=== PATIENT | male | born 1975 | race Caucasian/White ===

== ENCOUNTER 2019-12-24 12:27 | Emergency (ER) | payer BC, SELFPAY ==
--- NOTE | ~2019-12-24 | XR_ITS ---
EXAMINATION: XR abdomen obstructive series EXAM DATE: 12/24/2019 14:06 INDICATION: Abdominal pain. TECHNIQUE: Frontal upright projection of the upper abdomen, frontal projection of the lower abdomen f or interpretation. There is no prior study for comparison. FINDINGS: Moderate to large amount of colonic stool and gas. No dilated small bowel loops suspected . No free intraperitoneal gas. Gano There are no osseous abnormalities identified. IMPRESSION: Moderate to large amount of colonic gas and stool. Reviewed, dictated and finalized at location B. [employer]
[2019-12-24 12:38] VITALS: BP 119/89; PULSE 105; RESP 19; TEMP 37.1; O2SAT 100
[2019-12-24 13:13] LABS: Basophils Percent Auto 0.4 % (0.2-1.2); Eosinophils Absolute Auto 0.1 K/mm3 (0-0.3); Eosinophils Percent Auto 1.4 % (0-4.4); Hemoglobin 16.6 g/dL (14.0-18.0); Immature Granulocyte Absolute 0.01 K/mm3 (0.00-0.031); Immature Granulocyte Percent A 0.1 % (0-0.5); Lymphocytes Absolute Auto 1.41 K/mm3 (0.9-3.2); Lymphocytes Percent Auto 17.9 % (18.3-44.2); Mean Corpuscular HGB Conc 33.9 g/dl (32-36); Mean Corpuscular Hemoglobin 28.4 pg (26-34); Mean Corpuscular Volume 83.9 fl (80-100); Mean Platelet Volume 9.4 fl (7.4-10.4); Monocytes Absolute Auto 0.7 K/mm3 (0.1-0.6); Monocytes Percent Auto 8.2 % (2.6-8.5); Neutrophils Absolute Auto 5.7 K/mm3 (1.3-6.7); Platelet Count Result 236 k/mm3 (150-375); Red Blood Count 5.84 M/mm3 (4.6-6.20); Red Cell Distribution Width 12.8 % (11.5-14.5); White Blood Count 7.9 K/mm3 (4.5-10.0)
[2019-12-24 13:25] LABS: Alanine Aminotransferase 36 U/L (4-50); Albumin Level 4.6 g/dL (3.5-5.1); Alkaline Phosphatase 101 U/L (38-126); Aspartate Amino Transferase 29 U/L (17-59); Bilirubin,Total 0.8 mg/dL (0.2-1.3); Blood Urea Nitrogen 13 mg/dL (9-20); Calcium 9.4 mg/dL (8.4-10.2); Carbon Dioxide 20 mmol/L (22-30); Chloride 103 mmol/L (98-107); Estimated Glomerular Filt Rate > 60; Glucose 99 mg/dL (75-110); Lipase 90 U/L (23-300); Potassium 3.9 mmol/L (3.4-5.0); Sodium 140 mmol/L (137-145)
--- NOTE | 2019-12-24 13:35 | ED.GENADULT ---
HPI - General Adult General Chief complaint: Unspecified Stated complaint: Constipation Time Seen by Provider: 12/24/19 12:48 Source: patient Mode of arrival: ambulatory Limitations: no limitations History of Present Illness HPI narrative: Patient is a 44-year-old male who presents to emergency department for evaluation of constipation for 2 days with some mild discomfort in the left lower abdomen has not taken anything for symptoms nothing is made it better or worse notes similar occurrence in the past Related Data Allergies Allergy/AdvReac Type Severity Reaction Status Date / Time No Known Allergies Allergy Mild Verified 12/24/19 12:41 Review of Systems Review of Systems: All systems reviewed & are unremarkable except as noted in HPI and below PMFSH Social History Social History Smoking status: Never smoker Gender identity (if verbalized by the patient): Male Exam Narrative: Exam Narrative: GENERAL: Well-appearing, well-nourished, and in no acute distress. HEAD: Normocephalic, atraumatic. EYES: PERRLA and EOMI. ENT: Nares clear, no rhinorrhea or epistaxis. Mucous membranes moist. Oropharynx without tonsillar hypertrophy exudate or other lesions. CHEST: Clear to auscultation. No respiratory distress. No wheezes rales or rhonchi HEART: Regular rate and rhythm. No murmur heard. Normal peripheral pulses. ABDOMEN: Soft, nontender, nondistended EXTREMITIES: Normal range of motion. No edema. SKIN: Warm, dry, no rash. NEURO: No focal deficits. Alert and oriented x3. PSYCH: Normal mood and affect. Course Course Emergency Course: Patient in the room aware of case findings treatment plan and diagnosis agreeing to follow-up as directed Vital Signs Vital signs: Vital Signs Temperature 98.7 F 12/24/19 12:38 Pulse Rate 105 H 12/24/19 12:38 Respiratory Rate 12/24/19 12:38 Blood Pressure 119/89 12/24/19 12:38 Pulse Oximetry 100 12/24/19 12:38 Temperature 98.7 F 12/24/19 12:38 Pulse Rate 105 H 12/24/19 12:38 Respiratory Rate 19 12/24/19 12:38 Blood Pressure 119/89 12/24/19 12:38 Pulse Oximetry 100 12/24/19 12:38 Medical Decision Making MDM Narrative Medical decision making narrative: Patient with constipation will be treated provided with reasons to return afebrile nontoxic-appearing no high risk changes in the blood work or imaging Vital Signs Vital Signs: Vital Signs Temperature 98.7 F 12/24/19 12:38 Pulse Rate 105 H 12/24/19 12:38 Respiratory Rate 12/24/19 12:38 Blood Pressure 119/89 12/24/19 12:38 Pulse Oximetry 100 12/24/19 12:38 Temperature 98.7 F 12/24/19 12:38 Pulse Rate 105 H 12/24/19 12:38 Respiratory Rate 12/24/19 12:38 Blood Pressure 119/89 12/24/19 12:38 Pulse Oximetry 100 12/24/19 12:38 Lab Data Result diagrams: 12/24/19 13:07 12/24/19 13:07 Labs: Lab Results 12/24/19 12/24/19 12/24/19 Range/Units 13:07 13:07 13:50 WBC 7.9 (4.5-10.0) K/mm3 RBC 5.84 (4.6-6.20) M/mm3 Hgb 16.6 (14.0-18.0) g/dL Hct 49.0 (42.0-52.0) % MCV 83.9 (80-100) fl MCH 28.4 (26-34) pg MCHC 33.9 (32-36) g/dl RDW 12.8 (11.5-14.5) % Plt Count 236 (150-375) k/mm3 MPV 9.4 (7.4-10.4) fl Immature Gran % (Auto) 0.1 (0-0.5) % Neut % (Auto) 72.0 (45.5-73.1) % Lymph % (Auto) 17.9 L (18.3-44.2) % Morrison % (Auto) 8.2 (2.6-8.5) % Eos % (Auto) 1.4 (0-4.4) % Baso % (Auto) 0.4 (0.2-1.2) % Lymph # (Auto) 1.41 (0.9-3.2) K/mm3 Morrison # (Auto) 0.7 H (0.1-0.6) K/mm3 Eos # (Auto) 0.1 (0-0.3) K/mm3 Baso # (Auto) 0.0 (0.0-0.1) K/mm3 Abs Immat Gran (auto) 0.01 (0.00-0.031) K/mm3 Absolute Neuts (auto) 5.7 (1.3-6.7) K/mm3 Absolute Nucleated RBC 0.0 (0.0-0.012) K/mm3 Nucleated RBC % 0.0 (0.0-0.2) % Sodium 140 (137-145) mmol/L Potassium 3.9 (3.4-5.0) mmol/
[2019-12-24 13:59] LABS: Add Urine Microscopic? NO; Appearance Urine Clear (Clear); Bacteria Urine Trace /hpf; Bilirubin Urine Negative (Negative); Blood Urine Negative (Negative); Color Urine Yellow (Yellow); Glucose Urine UA Negative (Negative); Ketones Urine Negative (Negative); Leukocyte Esterase Ur Negative LEU/UL (Negative); Mucus Urine Rare /lpf; Nitrate Urine Negative (Negative); Protein Urine Negative (Negative); RBC Urine 0-2 /hpf (0-2); Specific Grav Ur 1.018 (1.001-1.035); Squamous Epithelial Cell Urine Rare /hpf (Few); Urobilinogen Urine Negative mg/dL (<2.0); WBC Urine 0-3 /hpf
== END 2019-12-24 15:01 | disposition home or self-care (01) ==
PROVIDERS: Emergency Medicine Emergency Medical Services; Emergency Provider Emergency Medicine
DX: K59.00 Constipation, unspecified (principal)
CPT/HCPCS: 36415; 74019; 80053; 81003; 83690; 85025; 99283

== ENCOUNTER 2021-03-19 10:54 | Emergency (ER) | payer BC, SELFPAY ==
--- NOTE | ~2021-03-19 | US_ITS ---
EXAMINATION: US scrotum doppler DATE: 03/19/2021 12:39 INDICATION: Left testicular pain and swelling TECHNIQUE: Testicular sonogram utilizing grayscale and Doppler COMPARISON: None. FINDINGS: The right testis measures 3.1 x 1.9 x 1.8 cm. The left testis measures 3.6 x 1.9 x 2.7 cm. Symmetric normal grayscale appearance to both testes. There is normal vascular flow to both testes. The right e pididymis is normal with normal vascular flow. 10 mm anechoic left epididymal cyst. The left epididym is is otherwise normal with normal vascular flow. Small bilateral hydroceles. Mild left varicocele. IMPRESSION: 1. Mild left varicocele and small bilateral hydroceles. 2. 10 mm left epididymal cyst. Otherwise normal bilateral testes and epididymides. Reviewed, dictated and finalized at location A. IMPRESSION: 1. Mild left varicocele and small bilateral hydroceles. 2. 10 mm left epididymal cyst. Otherwise normal bilateral testes and epididymid es.
[2021-03-19 11:13] VITALS: BP 115/77; PULSE 94; RESP 20; TEMP 36.6; O2SAT 97
--- NOTE | 2021-03-19 11:32 | ED.MALEGU ---
HPI - Male Genitourinary General Chief complaint: Urogenital-Male Stated complaint: L TESTICULAR PAIN Time Seen by Provider: 03/19/21 11:30 Source: patient Mode of arrival: ambulatory Limitations: no limitations History of Present Illness HPI Narrative: Patient is 45 years old white male presents with pain and swelling of the left testicle 2 months ago. Patient denies any trauma or urinary symptoms. Patient is concerned about the possibility of hernia. Patient works as a cook with a lot of lifting. Patient denies any fever, chills, nausea, vomiting, abdominal pain, back pain, urinary symptoms or urethral discharge. Related Data Home Medications Medication Instructions Recorded Confirmed No Home Medications 03/19/21 03/19/21 Allergies Allergy/AdvReac Type Severity Reaction Status Date / Time No Known Allergies Allergy Mild Verified 12/24/19 12:41 Review of Systems Review of Systems: Narrative: CONSTITUTIONAL: Denies fever, chills, or sweats. EYES: Denies visual changes, redness, or discharge. ENT: Denies rhinorrhea, congestion, sore throat, or otalgia. CARDIOVASCULAR: Denies chest pain, palpitations, or edema. RESPIRATORY: Denies cough or dyspnea. GASTROINTESTINAL: Denies abdominal pain, nausea, vomiting, or diarrhea. GENITOURINARY: Denies dysuria or hematuria. SKIN: Denies rash or itching. MUSCULOSKELETAL: Denies back pain, joint pain, or myalgia. NEUROLOGIC: Denies headache, numbness, or weakness. PSYCHIATRIC: Denies anxiety or depression. PMFSH Social History Social History Smoking status: Never smoker Gender identity (if verbalized by the patient): Male Exam Narrative: Exam Narrative: General appearance: Well-developed, well-nourished Skin: Normal color Head: Normocephalic, nontraumatic Eyes: Clear conjunctiva ENT: Oropharynx normal, ears normal, nose normal Neck: Supple, nontender Chest and respiratory: Airway patent, no respiratory distress, no accessory muscle use Heart: Regular rate/rhythm Abdomen: Soft, nontender, no organomegaly, quiet bowel sounds, genital exam showed no acute abnormality. Left scrotum showed possible varicocele., No tenderness, no mass, no erythema. Vascular: Normal peripheral pulses, normal capillary refill. Musculoskeletal: Normal range of motion, nontender back Neurologic: Alert and oriented ?3, SEAT JOINER CHAINSTITCH is normal as tested, no gross motor deficit Course Course Emergency Course: Stable Vital Signs Vital signs: Vital Signs Temperature 36.6 C 03/19/21 11:13 Pulse Rate 94 03/19/21 11:13 Respiratory Rate 03/19/21 11:13 Blood Pressure 115/77 03/19/21 11:13 Pulse Oximetry 97 03/19/21 11:13 Temperature 36.6 C 03/19/21 11:13 Pulse Rate 94 03/19/21 11:13 Respiratory Rate 03/19/21 11:13 Blood Pressure 115/77 03/19/21 11:13 Pulse Oximetry 97 03/19/21 11:13 MDM - Male Genitourinary MDM Narrative Medical decision making narrative: Left testicular pain and swelling. Look at the differential diagnosis below. UA and testicular ultrasound ordered. Differential Diagnosis Differential diagnosis: Likely epididymitis, inguinal hernia and other (Testicular tumor, varicocele, hydrocele) Imaging Data Radiologist's impression: Impressions Scrotum Ultrasound 03/19/21 12:43 IMPRESSION: 1. Mild left varicocele and small bilateral hydroceles. 2. 10 mm left epididymal cyst. Otherwise normal bilateral testes and epididymides. Critical Care Time Critical Care Time Critical Care Time: No Discharge Plan Discharge Clinical Impression: Varicocele Hydrocele Qualifiers: Hydrocele type: unspec
[2021-03-19 12:20] LABS: Add Urine Microscopic? YES; Appearance Urine Clear (Clear); Bilirubin Urine Negative (Negative); Blood Urine Negative (Negative); Color Urine Yellow (Yellow); Glucose Urine UA Negative (Negative); Ketones Urine Negative (Negative); Leukocyte Esterase Ur Negative LEU/UL (Negative); Mucus Urine Rare /lpf; Nitrate Urine Negative (Negative); Protein Urine Negative (Negative); Specific Grav Ur 1.026 (1.001-1.035); Squamous Epithelial Cell Urine Rare /hpf (Few); WBC Urine 0-3 /hpf
[2021-03-19 13:33] VITALS: BP 136/80; PULSE 84; RESP 16; O2SAT 98
== END 2021-03-19 13:05 | disposition home or self-care (01) ==
PROVIDERS: Emergency Provider Emergency Medicine
DX: I86.1 Scrotal varices (principal); N43.3 Hydrocele, unspecified; N50.3 Cyst of epididymis
CPT/HCPCS: 76870; 81001; 93976; 99284

== ENCOUNTER 2021-05-18 11:56 | Emergency (ER) | payer BC, SELFPAY ==
--- NOTE | ~2021-05-18 | XR_ITS ---
EXAMINATION: XR knee RT min 4V DATE: 05/18/2021 12:45 INDICATION: Right knee pain and swelling post injury TECHNIQUE: Anteroposterior, 2 oblique and crosstable lateral views of the right knee were obtained COMPARISON: None. FINDINGS: Alignment is normal. No fracture. No joint effusion/layering lipohemarthrosis. Soft tissues are unre markable. IMPRESSION: 1. Negative right knee radiographs. Reviewed, dictated and finalized at location A.
[2021-05-18 12:07] VITALS: BP 114/74; PULSE 100; RESP 18; TEMP 36.9; O2SAT 98
--- NOTE | 2021-05-18 13:41 | ED.GENADULT ---
HPI - General Adult General Chief complaint: Extremity Injury, Lower Stated complaint: right knee pain Time Seen by Provider: 05/18/21 12:09 Source: patient and RN notes reviewed Mode of arrival: ambulatory Limitations: no limitations History of Present Illness HPI narrative: Patient is a 46-year-old male who presents with right knee pain was attempting to push an object when he felt a pop in the right knee has since felt unsteady with the right knee with a pain throughout the joint denies similar occurrence radicular symptoms or paresthesias presents per private vehicle no distress has not taken anything for his symptoms Related Data Allergies Allergy/AdvReac Type Severity Reaction Status Date / Time No Known Allergies Allergy Mild Verified 05/18/21 12:09 Review of Systems Review of Systems: All systems reviewed & are unremarkable except as noted in HPI and below PMFSH Social History Social History Smoking status: Never smoker Gender identity (if verbalized by the patient): Male Exam Narrative: Exam Narrative: GENERAL: Well-appearing, well-nourished, and in no acute distress. HEAD: Normocephalic, atraumatic. EYES: PERRLA and EOMI. ENT: Nares clear, no rhinorrhea or epistaxis. Mucous membranes moist. CHEST: Clear to auscultation. No respiratory distress. No wheezes rales or rhonchi HEART: Regular rate and rhythm. No murmur heard. Normal peripheral pulses. EXTREMITIES: Tenderness right knee joint no deformities. SKIN: Warm, dry, no rash. NEURO: No focal deficits. Alert and oriented x3. Neurovascularly intact PSYCH: Normal mood and affect. Course Course Emergency Course: Patient in the room no distress aware of case findings treatment plan and diagnosis agreeing to follow-up as Vital Signs Vital signs: Vital Signs Temperature 98.4 F 05/18/21 12:07 Pulse Rate 100 05/18/21 12:07 Respiratory Rate 18 05/18/21 12:07 Blood Pressure 114/74 05/18/21 12:07 Pulse Oximetry 98 05/18/21 12:07 Temperature 98.4 F 05/18/21 12:07 Pulse Rate 100 05/18/21 12:07 Respiratory Rate 18 05/18/21 12:07 Blood Pressure 114/74 05/18/21 12:07 Pulse Oximetry 98 05/18/21 12:07 Medical Decision Making MDM Narrative Medical decision making narrative: Patients injury or pain is consistent with musculoskeletal etiology. No signs of neurological or vascular compromise on exam. Compartments and tisues are soft without signs of compartment syndrome. Pain is felt appropriate for further evaluation on an outpatient basis. Vital Signs Vital Signs: Vital Signs Temperature 98.4 F 05/18/21 12:07 Pulse Rate 100 05/18/21 12:07 Respiratory Rate 18 05/18/21 12:07 Blood Pressure 114/74 05/18/21 12:07 Pulse Oximetry 98 05/18/21 12:07 Temperature 98.4 F 05/18/21 12:07 Pulse Rate 100 05/18/21 12:07 Respiratory Rate 18 05/18/21 12:07 Blood Pressure 114/74 05/18/21 12:07 Pulse Oximetry 98 05/18/21 12:07 Imaging Data Radiologist's impression: ITS Impressions Knee X-Ray 05/18/21 12:45 IMPRESSION: 1. Negative right knee radiographs. Discharge Plan Discharge Clinical Impression: Acute internal derangement of knee Patient Disposition: Home, Self-Care Condition: Stable Instructions: Antibiotic Form, Arthralgia (ED) Additional Instructions: Wear brace and use crutches. No weight on the affected leg until able to bear weight without pain. Ice and elevate extremity. Pain medication as needed and directed. Follow-up with orthopedist and primary care by phone today to set up for reevaluation. Return if symptoms worsen or concerns or any increase in redness swelling pain or fever over 100.5 Prescriptions: New ibuprofen [IBU] 600 mg tablet 600 mg PO QID PRN (Reason: fever or pain) Qty: 7 RF: 0 Follow-up/Referrals: PHYSICIAN,[facility] DRIER [Primary Care Provider] - Khari Paz MD [[facility]
== END 2021-05-18 14:15 | disposition home or self-care (01) ==
PROVIDERS: Emergency Provider Emergency Medicine
DX: M23.91 Unspecified internal derangement of right knee (principal); S89.91XA Unspecified injury of right lower leg, initial encounter; X50.0XXA Overexertion from strenuous movement or load, initial encounter
CPT/HCPCS: 73564; 99283